=== PATIENT | male | born 1995 | race Caucasian/White ===

== ENCOUNTER 2017-01-09 08:59 | Emergency (ER) | payer SELFPAY | END 2017-01-09 10:50 | disposition home or self-care (01) | LOC: ER1 08:59 | DX: J40 Bronchitis, not specified as acute or chronic (principal); H66.92 Otitis media, unspecified, left ear; F17.200 Nicotine dependence, unspecified, uncomplicated | CPT/HCPCS: 71020; 87081; 87880; 99283 ==

== ENCOUNTER 2021-04-20 18:34 | Emergency (ER) | payer SELFPAY ==
[~2021-04-20 18:34] MED LIST: DELSYM30 MG/5 ML PO; ZOFRAN4 MG PO
[2021-04-20] MEDS ORDERED: ZOFRAN ODT 4 MG4 MG SL (19:42)
== END 2021-04-20 20:02 | disposition home or self-care (01) ==
LOC: ER1 18:34
DX: R19.7 Diarrhea, unspecified (principal); R11.10 Vomiting, unspecified; F17.200 Nicotine dependence, unspecified, uncomplicated
CPT/HCPCS: 99283

== ENCOUNTER 2021-12-14 20:58 | Emergency (ER) | payer SELFPAY ==
[~2021-12-14 20:58] MED LIST changes: +ZOFRAN ODT 4 MG4 MG SL
[2021-12-14] MEDS ORDERED: ZOFRAN ODT 4 MG4 MG GT (23:24)
== END 2021-12-15 00:03 | disposition home or self-care (01) ==
LOC: ER1 20:58
DX: U07.1 COVID-19 (principal)
CPT/HCPCS: 0240U; 99284